=== PATIENT | female | born 1935 | race Caucasian/White ===

== ENCOUNTER 2018-05-02 11:13 | Emergency (ER) | payer MEDICARE ==
[~2018-05-02] VITALS: Ht 160 cm; Wt 72.3 kg
[~2018-05-02 11:13] MED LIST: CEPH-368 PO; HYDR12.53 PO; LISI5TAB7 PO; TRAM50TA2 PO
[2018-05-02 12:19] LABS: BASOPHILS # (AUTO) 0.03 x10^3/uL (0-0.1); BASOPHILS % (AUTO) 1 % (0-1); EOSINOPHILS # (AUTO) 0.08 x10^3/uL (0-0.4); EOSINOPHILS % (AUTO) 1 % (1-7); LYMPHOCYTES # (AUTO) 1.99 x10^3/uL (1-3.4); LYMPHOCYTES % (AUTO) 35 % (22-44); MD NO; MEAN CORPUSCULAR HEMOGLOBIN 31.8 pg (27.0-34.8); MEAN CORPUSCULAR VOLUME 93.5 fL (80-100); MEAN PLATELET VOLUME 8.5 fL (7.4-10.4); MONOCYTES # (AUTO) 0.44 x10^3/uL (0.2-0.8); MONOCYTES % (AUTO) 8 % (2-9); NEUTROPHILS % (AUTO) 55 % (42-75); PLATELET COUNT 317 x10^3/uL (130-400); RED BLOOD COUNT 4.58 x10^6/uL (3.82-5.3); RED CELL DISTRIBUTION WIDTH 13.6 % (9.6-15.2)
[2018-05-02 12:30] LABS: ALANINE AMINOTRANSFERASE 22 U/L (12-78); ALBUMIN 3.9 g/dL (3.4-5.0); ANION GAP 6 mmol/L (5-15); CALCIUM 8.9 mg/dL (8.5-10.1); CHLORIDE 102 mmol/L (98-107)
[2018-05-02 12:33] LABS: ALKALINE PHOSPHATASE 83 U/L (45-117); BILIRUBIN,TOTAL 0.2 mg/dL (0.2-1.0); CREATININE 0.81 mg/dL (0.55-1.02); TOTAL PROTEIN 7.7 g/dL (6.4-8.2)
[2018-05-02 13:00] VITALS: BP 197/101
[2018-05-02 13:15] LABS: MICROSCOPIC NOT IND
[2018-05-02 13:17] LABS: CULTURE INDICATED? NO
== END 2018-05-02 14:08 | disposition left against medical advice (07) ==
LOC: ED 12:52
DX: R53.1 Weakness (principal); R53.83 Other fatigue; Z88.4 Allergy status to anesthetic agent; Z88.1 Allergy status to other antibiotic agents; Z88.2 Allergy status to sulfonamides; Z88.8 Allergy status to other drugs, medicaments and biological substances
CPT/HCPCS: 36415; 80053; 81003; 85025; 93005; 99285

== ENCOUNTER 2019-06-26 19:08 | Inpatient (IN) | payer MEDICARE ==
[~2019-06-26] VITALS: Ht 160 cm; Wt 68.5 kg
[~2019-06-26 19:08] MED LIST changes: +HYDR12.517 PO; -HYDR12.53 PO
--- NOTE | 2019-06-26 19:14 | NUR ---
PT INSISTS ON GOING TO THE BATHROOM IMMEDIATELY ON ARRIVAL VIA [facility]. EKG IN PROGRESS AND MD AT BEDSIDE AT THIS TIME.
[2019-06-26] MEDS ORDERED: DILTIAZEM 5 MG/ML, 5ML IV ONE (19:30)
--- NOTE | 2019-06-26 19:34 | NUR ---
LABS DRAWN FROM [facility] PIV. LAB AT BEDSIDE. CXR IN PROGRESS AT THIS TIME. PT CONTINUES TO BE AWAKE/ALERT AND W/O DISTRESS.
[2019-06-26] MEDS ORDERED: DILTIAZEM 5 MG/ML, 10ML ONE (19:39)
[2019-06-26] MEDS ORDERED: DILTIAZEM 5 MG/ML, 5ML ONE (19:39)
--- NOTE | 2019-06-26 19:44 | NUR ---
PT INSISTING TO SIT U Addendum: 06/26/19 at 1944 by DEBORAH PT INSISTING TO SIT ON THE EDGE OF THE BED. PT ON FULL MONITOR, INSTRUCTED NOT TO GET UP W/OASSISTANCE. CALL LIGHT IN REACH. COOPERATIVE AT THIS TIME
--- NOTE | 2019-06-26 19:49 | NUR ---
REPEAT EKG IN PROGRESS AT THIS TIME.
[2019-06-26 19:58] LABS: ALBUMIN 3.7 g/dL (3.4-5.0); ANION GAP 12 mmol/L (5-15); CALCIUM 8.7 mg/dL (8.5-10.1); CHLORIDE 102 mmol/L (98-107); CREATININE 0.69 mg/dL (0.55-1.02)
[2019-06-26 20:02] LABS: MD SCAN; TROPONIN I < 0.015 ng/mL (0.000-0.045)
[2019-06-26] MEDS ORDERED: TRAM50TA2 PO (20:13)
[2019-06-26] MEDS ORDERED: DILT30TA27 PO (20:14)
[2019-06-26] MEDS ORDERED: ASPI-650 PO (20:15)
[2019-06-26] MEDS ORDERED: LISI-167 PO (20:15)
[2019-06-26] MEDS ORDERED: HYDR12.517 PO (20:16)
--- NOTE | 2019-06-26 20:16 | NUR ---
UPDATED PT MEDICATION LIST IN EMR BASED ON PT REPORT. PT STATES THE MED LIST FROM 06/15 IS NOT CORRECT.
[2019-06-26 20:20] LABS: BASOPHILS # (AUTO) 0.01 x10^3/uL (0-0.1); BASOPHILS % (AUTO) 0 % (0-1); EOSINOPHILS # (AUTO) 0.09 x10^3/uL (0-0.4); EOSINOPHILS % (AUTO) 1 % (1-7); LYMPHOCYTES # (AUTO) 1.98 x10^3/uL (1-3.4); LYMPHOCYTES % (AUTO) 26 % (22-44); MEAN CORPUSCULAR HEMOGLOBIN 31.9 pg (27.0-34.8); MEAN CORPUSCULAR HGB CONC 33.4 g/dL (32.4-35.8); MEAN CORPUSCULAR VOLUME 95.6 fL (80-100); MEAN PLATELET VOLUME 8.3 fL (7.4-10.4); MONOCYTES # (AUTO) 0.53 x10^3/uL (0.2-0.8); MONOCYTES % (AUTO) 7 % (2-9); NEUTROPHILS # (AUTO) 5.05 x10^3/uL (1.8-6.8); NEUTROPHILS % (AUTO) 66 % (42-75); PLATELET COUNT 279 x10^3/uL (130-400); RED BLOOD COUNT 4.52 x10^6/uL (3.82-5.3); RED CELL DISTRIBUTION WIDTH 13.3 % (9.6-15.2)
--- NOTE | 2019-06-26 20:33 | NUR ---
PT AMBULATORY TO THE RESTROOM AT THIS TIME W/O DISTRESS.
[2019-06-26] MEDS ORDERED: DILTIAZEM 60 MG TABLET ONE (20:53)
--- NOTE | 2019-06-26 20:55 | NUR ---
AT BEDSIDE TO EVALUATE PT. HR RANGING FROM 110-140, PT REMAINS W/O DISTRESS BUT C/O HEADACHE.
[2019-06-26] MEDS ORDERED: DILTIAZEM 30 MG TABLET PO ONE (21:00)
[2019-06-26 21:14] LABS: MICROSCOPIC AUTO
[2019-06-26 21:15] LABS: CULTURE INDICATED? YES
--- NOTE | 2019-06-26 21:31 | NUR ---
PT RESTING IN BED W/O ACUTE DISTRESS. CONTINUES TO BE ON FULL MONITOR, VSS.
--- NOTE | 2019-06-26 21:49 | NUR ---
GAVE REPORT TO KISHAN MARKHAM AND AWAITING TRANSPORT.
[2019-06-26 22:02] VITALS: BP 126/82
[2019-06-26] MEDS ORDERED: ACETAMINOPHEN 325 MG TABLET PO PRN (23:30)
[2019-06-26] MEDS ORDERED: LIDODERM 5% PATCH TD PRN (23:30)
[2019-06-26] MEDS ORDERED: BISACODYL 10 MG SUPP PR PRN (23:30)
[2019-06-26] MEDS ORDERED: hydrALAzine 20 MG/ML, 1ML IVPush PRN (23:30)
[2019-06-26] MEDS ORDERED: ONDANSETRON ODT 4 MG PO PRN (23:30)
[2019-06-27 00:16] LABS: TROPONIN I < 0.015 ng/mL (0.000-0.045)
[2019-06-27 01:47] VITALS: BP 106/56
[2019-06-27] MEDS: TEMAZEPAM 15 MG CAPSULE PO PRN ×2 (01:48→21:43)
[2019-06-27] MEDS: APIXABAN 5 MG TABLET PO SCH ×3 (01:48→21:43)
[2019-06-27 05:44] LABS: MEAN CORPUSCULAR HEMOGLOBIN 31.4 pg (27.0-34.8); MEAN CORPUSCULAR HGB CONC 32.9 g/dL (32.4-35.8); MEAN CORPUSCULAR VOLUME 95.7 fL (80-100); MEAN PLATELET VOLUME 7.9 fL (7.4-10.4); PLATELET COUNT 297 x10^3/uL (130-400); RED BLOOD COUNT 4.52 x10^6/uL (3.82-5.3); RED CELL DISTRIBUTION WIDTH 13.8 % (9.6-15.2)
[2019-06-27 05:58] LABS: MD YES
[2019-06-27 05:59] LABS: CALCIUM 8.7 mg/dL (8.5-10.1); CHLORIDE 103 mmol/L (98-107); MONOS#(MANUAL) 0.39 x10^3/uL (0.3-2.7); MONOS% (MANUAL) 5 % (2-9)
[2019-06-27 06:00] LABS: <PLATELET ESTIMATE> ADEQUATE; <PLT MORPHOLOGY> NORMAL PLT MORPH; <RBC MORPHOLOGY> NORMAL; LYMPH#(MANUAL) 1.93 x10^3/uL (1-3.4); LYMPHS% (MANUAL) 25 % (22-44); SEG#(MANUAL) 5.39 x10^3/uL (1.8-6.8); SEGS% (MANUAL) 70 % (42-75)
[2019-06-27 06:08] LABS: ANION GAP 6 mmol/L (5-15); CREATININE 0.61 mg/dL (0.55-1.02); TROPONIN I < 0.015 ng/mL (0.000-0.045)
[2019-06-27 07:13] VITALS: BP 122/74
[2019-06-27] MEDS ORDERED: LISINOPRIL 10 MG TABLET PO SCH (09:00)
[2019-06-27] MEDS ORDERED: ASPIRIN 325 MG TABLET EC PO SCH (09:00)
[2019-06-27] MEDS ORDERED: HYDROCHLOROTHIAZIDE 12.5 MG CAPSULE PO SCH (09:00)
[2019-06-27] MEDS: DILTIAZEM 60 MG TABLET PO SCH ×3 (10:10→21:42)
[2019-06-27 14:38] VITALS: BP 149/88
[2019-06-27 14:40] VITALS: BP 127/82
[2019-06-27 14:57] VITALS: BP 156/83
[2019-06-27 19:02] VITALS: BP 96/64
[2019-06-28 03:20] VITALS: BP 113/69
[2019-06-28 07:15] VITALS: BP_SYST 126; BP_SYST 128; BP_DIAS 78; BP_DIAS 82
[2019-06-28] MEDS: APIXABAN 5 MG TABLET PO SCH (08:19)
[2019-06-28] MEDS: DILTIAZEM 60 MG TABLET PO SCH (08:19)
[2019-06-28 13:07] VITALS: BP 122/76
[2019-06-28] MEDS ORDERED: APIX5TAB PO (14:07)
[2019-06-28] MEDS ORDERED: DILT60TA30 PO ×2 (14:07)
[2019-07-11] MEDS ORDERED: ACET325T14 PO (09:23)
[2019-07-11] MEDS ORDERED: DIGO125T PO (12:42)
[2019-07-13] MEDS ORDERED: DILT240C2 PO (13:39)
[2019-07-13] MEDS ORDERED: FLEC100T PO (13:39)
== END 2019-06-28 16:00 | disposition home or self-care (01) | DRG 309 ==
LOC: ED 21:06 → EDIP 21:10 → 5SO 21:58 → DCLOUNGE 06-28 15:32
PROVIDERS: ADMIT Internal Medicine; ATTEND Internal Medicine
DX: I48.0 Paroxysmal atrial fibrillation (principal); D68.69 Other thrombophilia; J98.11 Atelectasis; J43.9 Emphysema, unspecified; M48.02 Spinal stenosis, cervical region; I95.9 Hypotension, unspecified; K21.9 Gastro-esophageal reflux disease without esophagitis; I49.3 Ventricular premature depolarization; Z96.641 Presence of right artificial hip joint; F17.200 Nicotine dependence, unspecified, uncomplicated; I11.9 Hypertensive heart disease without heart failure; Z79.01 Long term (current) use of anticoagulants; Z83.3 Family history of diabetes mellitus; Z90.710 Acquired absence of both cervix and uterus; Z98.49 Cataract extraction status, unspecified eye
CPT/HCPCS: 36415; 71045; 80048; 81001; 82040; 83735; 83880; 84145; 84443; 84484; 85025; 87086; 93005; 96374; G0378

== ENCOUNTER 2019-07-11 08:28 | Inpatient (IN) | payer MEDICARE ==
[~2019-07-11] VITALS: Ht 160 cm; Wt 68.2 kg
[2019-07-13 06:20] VITALS: BP 124/85
== END 2019-07-13 15:47 | disposition home or self-care (01) | DRG 309 ==
LOC: ED 10:00 → EDIP 10:02 → 5SO 11:50 → DCLOUNGE 07-13 15:17
PROVIDERS: ADMIT Hospitalist; ATTEND Internal Medicine
DX: I48.0 Paroxysmal atrial fibrillation (principal); D68.69 Other thrombophilia; I10 Essential (primary) hypertension; I34.0 Nonrheumatic mitral (valve) insufficiency; E78.5 Hyperlipidemia, unspecified; G89.29 Other chronic pain; M54.9 Dorsalgia, unspecified; M48.00 Spinal stenosis, site unspecified; Z53.9 Procedure and treatment not carried out, unspecified reason; Z60.2 Problems related to living alone; Z79.01 Long term (current) use of anticoagulants; Z98.49 Cataract extraction status, unspecified eye; Z82.49 Family history of ischemic heart disease and other diseases of the circulatory system; Z87.440 Personal history of urinary (tract) infections; Z88.8 Allergy status to other drugs, medicaments and biological substances; Z88.2 Allergy status to sulfonamides; Z88.1 Allergy status to other antibiotic agents; Z88.5 Allergy status to narcotic agent; Z88.6 Allergy status to analgesic agent; Z79.899 Other long term (current) drug therapy; Z87.891 Personal history of nicotine dependence
CPT/HCPCS: 36415; 71045; 71250; 74220; 74230; 80053; 81003; 83735; 84100; 84443; 85025; 85610; 85730; 87040; 93005; 93306; G0378; J2543; J7030

== ENCOUNTER 2021-03-23 18:06 | Emergency (ER) | payer MEDICARE ==
[~2021-03-23] VITALS: Ht 157.5 cm; Wt 58.1 kg
[~2021-03-23 18:06] MED LIST changes: +ACET325T14 PO; +APIX5TAB PO; +ASPI-1026 PO; +DIGO125T85 PO; +DILT240C2 PO; +DILT30TA27 PO; +DILT60TA30 PO; +FLEC100T PO; +LISI-167 PO
[2021-03-23 18:09] VITALS: BP 197/93
--- NOTE | 2021-03-23 18:54 | NUR ---
report to valerie prado. as
[2021-03-23 18:59] LABS: BASOPHILS % (AUTO) 1 % (0-1); EOSINOPHILS % (AUTO) 1 % (1-7); LYMPHOCYTES % (AUTO) 28 % (22-44); MD NO; MEAN CORPUSCULAR HEMOGLOBIN 32.1 pg (27.0-34.8); MEAN CORPUSCULAR HGB CONC 33.9 g/dL (32.4-35.8); MEAN PLATELET VOLUME 8.4 fL (7.4-10.4); MONOCYTES % (AUTO) 7 % (2-9); NEUTROPHILS % (AUTO) 64 % (42-75); PLATELET COUNT 317 x10^3/uL (130-400); RED BLOOD COUNT 4.46 x10^6/uL (3.82-5.3); RED CELL DISTRIBUTION WIDTH 14.4 % (9.6-15.2)
[2021-03-23] MEDS ORDERED: FENTANYL PF 100 MCG/2ML IVPush PRN (19:00)
[2021-03-23] MEDS ORDERED: SODIUM CHLORIDE FLUSH 10ML SYR IVF ONE (19:00)
[2021-03-23 19:10] LABS: ALANINE AMINOTRANSFERASE 27 U/L (12-78); ALBUMIN 4.1 g/dL (3.4-5.0); ANION GAP 7 mmol/L (5-15); CALCIUM 9.8 mg/dL (8.5-10.1); CHLORIDE 101 mmol/L (98-107); CREATININE 0.68 mg/dL (0.55-1.02)
[2021-03-23 19:15] LABS: ALKALINE PHOSPHATASE 74 U/L (45-117); BILIRUBIN,TOTAL 0.4 mg/dL (0.2-1.0); TOTAL PROTEIN 7.7 g/dL (6.4-8.2); TROPONIN I < 0.015 ng/mL (0.000-0.045)
--- NOTE | 2021-03-23 19:24 | NUR ---
PT A&OX4, NO DISTRESS A THIS TIME. STUDENT LIFE ADVISOR COMPLETED BLOOD DRAW. PIV ATTEMPT UNSUCCESFUL, AND ULTRASOUND IV BEING ATTEMPTED. PT ADVISED WE NEED URINE SAMPLE AND WILL BE ASSITED WITH IT. PT ON CR MONITOR, AND BP IS HIGH, MD AWARE, AND ATTEMPTING TO PLACE IV FOR MEDS.
[2021-03-23] MEDS ORDERED: FENTANYL PF 100 MCG/2ML ONE ×2 (19:32→20:25)
--- NOTE | 2021-03-23 19:35 | NUR ---
TASK RN: PIV PLACED. PT REFUSED US GUIDED PIV. PT AMBULATED STEADILY TO RESTROOM WO ASSISTANCE. DENIES MENDEZ/CP/SOB WITH AMBULATING.
--- NOTE | 2021-03-23 19:49 | NUR ---
PT CALM AND IN NO ACUTE DISTRESS, BUT STILL COMPLAINS OF PAIN TO HEAD AND BACK. NO CHEST PAIN, NO SHORTNESS OF BREATH. MEDS GIVEN FOR PAIN, WILL REEVALUATE IN 10MIN.
[2021-03-23] MEDS ORDERED: OMNIPAQUE 350 MG/ML, 100ML BOTTLE ONE (20:13)
[2021-03-23 20:35] LABS: MICROSCOPIC AUTO
[2021-03-23] MEDS ORDERED: MAALOX/HYOSCYAMINE/LIDOCAINE 45 ML BTL PO ONE (21:00)
[2021-03-23] MEDS ORDERED: MAALOX/HYOSCYAMINE/LIDOCAINE 45 ML BTL ONE (21:11)
[2021-03-23] MEDS ORDERED: CEFTRIAXONE 1,000 MG in DEXTROSE 5% 50 ML IVPB ONE (21:30)
--- NOTE | 2021-03-23 22:18 | NUR ---
PTS ANTIBIOTICS FINISHED INFUSING, NO ADVERSE REACTION NOTED. F/U AND D/C INSTRUCTIONS GIVEN TO PT AND SHE V/U. PIV D/C'D AND CATH INTACT. PT D/C'D AMBULATORY AND NO ISSUES.
== END 2021-03-23 22:21 | disposition home or self-care (01) ==
LOC: ED 21:13
DX: K29.00 Acute gastritis without bleeding (principal); N30.00 Acute cystitis without hematuria; R10.13 Epigastric pain; K59.00 Constipation, unspecified; I10 Essential (primary) hypertension; I48.91 Unspecified atrial fibrillation; R94.31 Abnormal electrocardiogram [ECG] [EKG]; Z88.8 Allergy status to other drugs, medicaments and biological substances; Z88.1 Allergy status to other antibiotic agents; Z88.2 Allergy status to sulfonamides; Z87.891 Personal history of nicotine dependence; Z90.89 Acquired absence of other organs
CPT/HCPCS: 36415; 74177; 80053; 81001; 83690; 84484; 85025; 87077; 87086; 93005; 96374; 99285; J3010; Q9967; 87186

== ENCOUNTER → 2021-04-25 | Outpatient (CLI) | payer MEDICARE | END | disposition home or self-care (01) | LOC: CVU 07:37 | PROVIDERS: ATTEND Student in an Organized Health Care Education/Training Program | DX: R60.0 Localized edema (principal); I87.2 Venous insufficiency (chronic) (peripheral); I10 Essential (primary) hypertension | CPT/HCPCS: 93970 ==

== ENCOUNTER → 2021-07-02 | Outpatient (CLI) | payer MEDICARE | END | disposition home or self-care (01) | LOC: RAD 12:26 | PROVIDERS: ATTEND Registered Nurse Registered Nurse First Assistant | DX: M48.061 Spinal stenosis, lumbar region without neurogenic claudication (principal); M54.5 Low back pain | CPT/HCPCS: 72110 ==

== ENCOUNTER → 2021-07-03 | Outpatient (CLI) | payer MEDICARE | END | disposition home or self-care (01) | LOC: RAD 14:14 | PROVIDERS: ATTEND Registered Nurse Registered Nurse First Assistant | DX: M41.85 Other forms of scoliosis, thoracolumbar region (principal) | CPT/HCPCS: 72082 ==

== ENCOUNTER 2021-08-16 12:58 | Outpatient (CLI) | payer MEDICARE ==
[2021-08-16 13:16] LABS: BASOPHILS % (AUTO) 1 % (0-1); EOSINOPHILS % (AUTO) 2 % (1-7); LYMPHOCYTES % (AUTO) 28 % (22-44); MEAN CORPUSCULAR HGB CONC 33.5 g/dL (32.4-35.8); MEAN PLATELET VOLUME 8.2 fL (7.4-10.4); MONOCYTES % (AUTO) 7 % (2-9); NEUTROPHILS % (AUTO) 62 % (42-75); PLATELET COUNT 260 x10^3/uL (130-400); RED BLOOD COUNT 4.22 x10^6/uL (3.82-5.3); RED CELL DISTRIBUTION WIDTH 14.1 % (9.6-15.2)
[2021-08-16 13:29] LABS: ALANINE AMINOTRANSFERASE 23 U/L (12-78); ALBUMIN 3.5 g/dL (3.4-5.0); ANION GAP 5 mmol/L (5-15); CALCIUM 9.1 mg/dL (8.5-10.1); CHLORIDE 104 mmol/L (98-107); CREATININE 0.71 mg/dL (0.55-1.02)
[2021-08-16 13:31] LABS: ALKALINE PHOSPHATASE 66 U/L (45-117); BILIRUBIN,TOTAL 0.4 mg/dL (0.2-1.0); TOTAL PROTEIN 7.2 g/dL (6.4-8.2)
== END 2021-08-16 23:59 | disposition home or self-care (01) ==
LOC: LAB 12:58
PROVIDERS: ATTEND Family Medicine
DX: I10 Essential (primary) hypertension (principal); R11.2 Nausea with vomiting, unspecified
CPT/HCPCS: 36415; 80053; 83036; 85025